=== PATIENT | female | born 1955 | race Caucasian/White ===

== ENCOUNTER 2024-02-13 12:58 | Emergency (ER) | payer MEDICARE, OTHER ==
[~2024-02-13] VITALS: Ht 172.7 cm; Wt 63.5 kg
[2024-02-13 13:00] VITALS: BP 101/56; PULSE 67; RESP 16; TEMP 98.6; O2SAT 95
[2024-02-13 14:20] LABS: APPEARANCE,URINE CLEAR (CLEAR); BILIRUBIN,URINE NEGATIVE (NEGATIVE); BLOOD, URINE NEGATIVE (NEGATIVE); COLOR,URINE YELLOW (YELLOW); LEUKOCYTE ESTERASE ,URINE NEGATIVE (NEGATIVE); NITRITE, URINE NEGATIVE (NEGATIVE); PROTEIN,URINE NEGATIVE (NEGATIVE); UGLUCOSE NEGATIVE (NEGATIVE); UROBILINOGEN,URINE 0.2 EU/dL (0.2 - 1)
[2024-02-13] MEDS: MECLIZINE 25 MG TAB PO ONE (14:50)
[2024-02-13] MEDS ORDERED: MECL-303 PO (15:33)
[2024-02-13 15:47] VITALS: BP 136/78; PULSE 79; RESP 20; TEMP 97.3; O2SAT 97
== END 2024-02-13 15:44 | disposition home or self-care (01) ==
LOC: MED 12:58
DX: R42 Dizziness and giddiness (principal); I10 Essential (primary) hypertension; Z98.890 Other specified postprocedural states; Z85.3 Personal history of malignant neoplasm of breast
CPT/HCPCS: 81003; 99283; J8597